=== PATIENT | female | born 1975 | race Caucasian/White ===

== ENCOUNTER 2019-02-05 20:20 | Emergency (ER) | payer MEDICARE ==
[2019-02-05] MEDS ORDERED: Albuterol/Ipratropium 3.0-0.5 MG/3 ML Neb Soln NEB ONE (20:54)
--- NOTE | 2019-02-05 20:56 | EDM.PDOC ---
ED HPI GENERAL MEDICAL PROBLEM - General Chief Complaint: Respiratory Problem Stated Complaint: SOB Time Seen by Provider: 02/05/19 20:50 Source of Information: Reports: Patient, RN Notes Reviewed History Limitations: Reports: No Limitations - History of Present Illness INITIAL COMMENTS - FREE TEXT/NARRATIVE: 43-year-old female presents emergency department today complaint of shortness of breath, she was recently evaluated in clinic a couple days prior newly diagnosed with COPD started on 1 dose of steroids followed by Rajiv harper. She states she is really not improved continues to have shortness of breath worse with exertion she does have a dry cough no fevers no chest pain - Related Data Allergies Allergy/AdvReac Type Severity Reaction Status Date / Time diphenhydramine Allergy Anxiety Verified 02/05/19 20:26 [From Benadryl] latex Allergy Hives Verified 02/05/19 20:28 shrimp Allergy Cannot Verified 02/05/19 20:28 Remember varenicline [From Chantix] Allergy Irritabilit Verified 02/05/19 20:28 y Home Meds: Home Meds ARIPiprazole [Abilify] 02/05/19 [History] Albuterol [Ventolin HFA] 02/05/19 [History] Benzonatate 02/05/19 [History] FLUoxetine HCl [Fluoxetine HCl] 02/05/19 [History] Gabapentin [Neurontin] 02/05/19 [History] Levothyroxine 02/05/19 [History] Lisinopril/Hydrochlorothiazide [Lisinopril-Hctz 10-12.5 mg Tab] 02/05/19 [ History] Methylphenidate HCl [Ritalin] 02/05/19 [History] Oxybutynin 02/05/19 [History] Topiramate [Topamax] 02/05/19 [History] buPROPion [buPROPion XL] 02/05/19 [History] clonazePAM [Clonazepam] 02/05/19 [History] traZODone 02/05/19 [History] Past Medical History Respiratory History: Reports: COPD Musculoskeletal History: Reports: Connective Tissue Disease, Fibromyalgia, Other (See Below) Other Musculoskeletal History: fibromyalgia Psychiatric History: Reports: ADHD, Bipolar, Depression - Past Surgical History GI Surgical History: Reports: Cholecystectomy Musculoskeletal Surgical History: Reports: Arthroscopic Procedure Social & Family History - Tobacco Use Smoking Status *Q: Current Every Day Smoker Years of Tobacco use: 20 Packs/Tins Daily: 0.5 ED ROS GENERAL - Review of Systems Review Of Systems: See Below Constitutional: Denies: Fever, Chills HEENT: Reports: No Symptoms Respiratory: Reports: Shortness of Breath, Wheezing, Cough. Denies: Sputum Cardiovascular: Reports: Dyspnea on Exertion GI/Abdominal: Reports: No Symptoms : Reports: No Symptoms ED EXAM, GENERAL - Physical Exam Exam: See Below Exam Limited By: No Limitations General Appearance: Alert, WD/WN, Mild Distress Ears: Normal External Exam, Normal Canal, Hearing Grossly Normal, Normal TMs Nose: Normal Inspection, Normal Mucosa, No Blood Throat/Mouth: Normal Inspection, Normal Lips, Normal Teeth, Normal Gums, Normal Oropharynx, Normal Voice, No Airway Compromise Head: Atraumatic, Normocephalic Neck: Normal Inspection, Supple, Non-Tender, Full Range of Motion Respiratory/Chest: No Respiratory Distress, Decreased Breath Sounds, Wheezing Cardiovascular: Regular Rate, Rhythm, No Murmur GI/Abdominal: Soft, Non-Tender Course - Vital Signs Last Recorded V/S: Last Vital Signs Temp 96.8 F 02/05/19 20:43 Pulse 111 H 02/05/19 20:43 Resp 30 H 02/05/19 20:43 BP 116/75 02/05/19 20:43 Pulse Ox 93 L 02/05/19 20:43 - Orders/Labs/Meds Orders: Active Orders 24 hr Category Date Time Status EKG Documentation Completion [RC] ASDIRECTED Care 02/05/19 20:54 Active RT Aerosol Therapy [RC] ASDIRECTED Care 02/05/19 20:54 Active EKG 12 Lead [EK] Urgent Ther 02/05/19 20:53 Ordered Labs: Laboratory Tests 02/05/19 02/05/19 02/05/19 Range/Units 20:59 20:59 20:59 WBC 12.6 H (4.5-11.0) K/uL RBC 4.61 (3.30-5.50) M/uL Hgb 13.2 (12.0-15.0) g/dL Hct 41.0 (36.0-48.0) % MCV 89 (80-98) fL MCH 29 (27-31) pg MCHC 32 (32-36) % Plt Count 216 (150-400) K/uL Neut % (Auto) 72 H (36-66) % Lymph % (Auto) 19 L (24-44) % Cameron % (Auto) 6 (2-6) % Eos % (Auto) 2 (2-4) % Baso % (Auto) 0 (0-1) % D-Dimer, Quantitative 474 H (0.0-400.0) ng/mL Sodium 136 L (140-148) mmol/L Potassium 3.3 L (3.6-5.2) mmol/L Chloride 101 (100-108) mmol/L Carbon Dioxide 21 (21-32) mmol/L Anion Gap 17.3 H (5.0-14.0) mmol/L BUN 18 (7-18) mg/dL Creatinine 1.6 H (0.6-1.0) mg/dL Est Cr Clr Drug Dosing 43.32 mL/min Estimated GFR (MDRD) 36 L (>60) Glucose 112 H (74-106) mg/dL Calcium 8.4 L (8.5-10.1) mg/dL Total Bilirubin 0.3 (0.2-1.0) mg/dL AST 17 (15-37) U/L ALT 14 (12-78) U/L Alkaline Phosphatase 113 (46-116) U/L Troponin I < 0.017 (0.000-0.056) ng/mL Total Protein 8.3 H (6.4-8.2) g/dL Albumin 3.1 L (3.4-5.0) g/dL Globulin 5.2 H (2.3-3.5) g/dL Albumin/Globulin Ratio 0.6 L (1.2-2.2) Meds: Medications Discontinued Medications Generic Name Dose Route Start Last Admin Trade Name Freq PRN Reason Stop Dose Admin Albuterol/Ipratropium 3 ml 02/05/19 20:54 02/05/19 21:06 Duoneb 3.0-0.5 Mg/3 Ml NEB 02/05/19 20:55 3 ml ONETIME ONE Administration - Re-Assessments/Exams Free Text/Narrative Re-Assessment/Exam: 02/05/19 21:41 Wells criteria she is low risk for pulmonary embolism Departure - Departure Time of Disposition: 22:38 Disposition: Home, Self-Care 01 Clinical Impression: Bronchitis - Discharge Information Referrals: PCP,None [Primary Care Provider] - Forms: ED Department Discharge Additional Instructions: Take full course of anabiotic's, take full course of prednisone as well, continued use your albuterol inhaler as needed for shortness of breath symptoms , please follow-up with your primary care in the next 5-7 days for reevaluation , call return to the emergency department worsening of symptoms. - My Orders Last 24 Hours: My Active Orders 02/05/19 20:53 EKG 12 Lead [EK] Urgent 02/05/19 20:54 EKG Documentation Completion [RC] ASDIRECTED RT Aerosol Therapy [RC] ASDIRECTED - Assessment/Plan Last 24 Hours: My Active Orders 02/05/19 20:53 EKG 12 Lead [EK] Urgent 02/05/19 20:54 EKG Documentation Completion [RC] ASDIRECTED RT Aerosol Therapy [RC] ASDIRECTED Plan: Assessment Acuity = acute Site and laterality = bronchitis Etiology = probable bacterial cause Manifestations = wheezing and dyspnea Location of injury = Home Lab values = WBC elevated 12.6 consistent leukocytosis d-dimer slightly elevated 474 uncertain significance creatinine elevated 1.6 consistent with chronic renal failure state G IIIB a troponin was negative EKG demonstrates a sinus tachycardia with no signs of ischemia chest x-ray shows no acute process Plan And treat empirically with azithromycin Z-Dominic also prednisone 20 mg once a day for 5 days she does have an albuterol inhaler at home as well as Tessalon pearls which she will continue have her follow-up with her primary care in 5-7 days for reevaluation This note was dictated using [employer] voice recognition software please call with any questions on syntax or grammar.
--- NOTE | 2019-02-05 21:53 | CRLCR ---
INDICATION: SOB COMPARISON: None. FINDINGS: PA and lateral views of the chest demonstrate mild hypoventilatory changes. There are patchy densities at the lung bases, most likely atelectasis. No pneumothorax or effusion. Heart size is normal. No acute osseous findings. IMPRESSION: Hypoventilatory changes with probable mild bibasilar atelectasis. No definite acute airspace disease. Dictated by Jt Colmenares MD @ 02/05/2019 9:52:18 PM Dictated by: Jt Colmenares MD @ 02/05/2019 21:52:23 (Electronically Signed)
== END 2019-02-05 22:49 | disposition home or self-care (01) ==
LOC: JP.ED 20:20
DX: J40 Bronchitis, not specified as acute or chronic (principal); F31.9 Bipolar disorder, unspecified; F17.210 Nicotine dependence, cigarettes, uncomplicated; Z79.899 Other long term (current) drug therapy; Z88.8 Allergy status to other drugs, medicaments and biological substances; Z91.040 Latex allergy status; Z91.013 Allergy to seafood
CPT/HCPCS: 36415; 71046; 80053; 84484; 85025; 85379; 93005; 94640; 99285-25; J7620-GY

== ENCOUNTER 2019-04-10 19:54 | Emergency (ER) | payer MEDICARE ==
[2019-04-10] MEDS ORDERED: Acetaminophen/oxyCODONE 325-5 MG Tab PO ONE (21:27)
--- NOTE | 2019-04-10 21:36 | EDM.PDOC ---
ED HPI GENERAL MEDICAL PROBLEM - General Chief Complaint: Genitourinary Problem Stated Complaint: KIDNEY PAIN Time Seen by Provider: 04/10/19 21:20 Source of Information: Reports: Patient History Limitations: Reports: No Limitations - History of Present Illness INITIAL COMMENTS - FREE TEXT/NARRATIVE: Rosario is a 43 year old female, presents to the ED today with c/o bilateral intermittent flank pain for two days, taking supplements without relief. Patient reports that her neurologist did some blood work last week and she was told that her creatinine was "42". Patient reports her urine was orange earlier today but she has been drinking a lot of water and now her urine is clear. Patient has not had her period for "years" due to depo shot. Patient had kidney stones in the past, her pain does not feel like this. Patient denies any fever or chills. Patient denies any nausea or vomiting. Patient reports that her kidney pain alternates between the right and left, it is now on the right. Onset: Gradual Duration: Day(s): (2) Treatments ECHOCARDIOGRAPHY TECHNOLOGIST: Reports: Other (see below) Other Treatments ECHOCARDIOGRAPHY TECHNOLOGIST: none - Related Data Allergies Allergy/AdvReac Type Severity Reaction Status Date / Time diphenhydramine Allergy Anxiety Verified 04/10/19 21:34 [From Benadryl] latex Allergy Hives Verified 04/10/19 21:34 shrimp Allergy Cannot Verified 04/10/19 21:34 Remember varenicline [From Chantix] Allergy Irritabilit Verified 04/10/19 21:34 y Home Meds: Home Meds ARIPiprazole [Abilify] 02/05/19 [History] Albuterol [Ventolin HFA] 02/05/19 [History] Benzonatate 02/05/19 [History] FLUoxetine HCl [Fluoxetine HCl] 02/05/19 [History] Gabapentin [Neurontin] 02/05/19 [History] Levothyroxine 02/05/19 [History] Lisinopril/Hydrochlorothiazide [Lisinopril-Hctz 10-12.5 mg Tab] 02/05/19 [ History] Methylphenidate HCl [Ritalin] 02/05/19 [History] Oxybutynin 02/05/19 [History] Topiramate [Topamax] 02/05/19 [History] buPROPion [buPROPion XL] 02/05/19 [History] clonazePAM [Clonazepam] 02/05/19 [History] traZODone 02/05/19 [History] Past Medical History Respiratory History: Reports: COPD Musculoskeletal History: Reports: Connective Tissue Disease, Fibromyalgia, Other (See Below) Other Musculoskeletal History: fibromyalgia Psychiatric History: Reports: ADHD, Bipolar, Depression - Past Surgical History GI Surgical History: Reports: Cholecystectomy Musculoskeletal Surgical History: Reports: Arthroscopic Procedure ED ROS GENERAL - Review of Systems Review Of Systems: ROS reveals no pertinent complaints other than HPI. ED EXAM, RENAL/ - Physical Exam Exam: See Below Exam Limited By: No Limitations General Appearance: Alert, WD/WN, No Apparent Distress Throat/Mouth: Normal Inspection, Normal Oropharynx Head: Atraumatic Neck: Normal Inspection, Supple, Non-Tender Respiratory/Chest: No Respiratory Distress, Lungs Clear Cardiovascular: Normal Peripheral Pulses, Regular Rate, Rhythm, No Murmur GI/Abdominal: Normal Bowel Sounds, Soft, Non-Tender (Female) Exam: Deferred Back Exam: No: CVA Tenderness (R), CVA Tenderness (L) Extremities: Normal Inspection Neurological: Alert, Oriented, CN II-XII Intact Psychiatric: Normal Affect, Normal Mood Skin Exam: Warm, Dry, Intact Course - Vital Signs Last Recorded V/S: Last Vital Signs Temp 36.6 C 04/10/19 21:41 Pulse 88 04/10/19 21:41 Resp 14 04/10/19 21:41 BP 138/73 04/10/19 21:41 Pulse Ox 98 04/10/19 21:41 Rosario is a 43 year old female, hx of hypothyroidism, hypertension, bipolar disorder, chronic pain syndrome, chronic myofascial pain, depression, anxiety, CKD and chronic migraine hx who presents to the ED today with significant other. Please refer to HPI and focused exam. Patient is in no acute distress on arrival here, she is hemodynamically stable. Patient's lab work reviewed from clinic, her last creatinine on April 08 was 1.46 with a BUN of 14 and a GFR of 39. UA today returns with 20-30 RBC's and small leukocyte esterase. The blood may be related to her CKD or may be UTI related as patient has been experiencing frequency. Again, given lack of CVA tenderness and intermittent bilateral flank pain I feel it is low likelihood that this is a stone. I am going to culture patient's urine and go ahead and start her on Macrobid for UTI. Patient encouraged to stay well hydrated. She has a PCP appt on the at which time her neurologist already directed her to ask for a nephrology referral which I stressed the importance of this evening. Reasons to return to the ED discussed with patient, she is agreeable to plan of care and discharged in stable condition with her significant other driving. - Orders/Labs/Meds Orders: Active Orders 24 hr Category Date Time Status CULTURE URINE [RM] Stat Lab 04/10/19 21:27 Ordered Labs: Laboratory Tests 04/10/19 Range/Units 20:59 Urine Color Yellow Urine Appearance Cloudy Urine pH 5.0 (4.5-8.0) Ur Specific [place] 1.020 (1.008-1.030) Urine Protein Negative (NEGATIVE) mg/dL Urine Glucose (UA) Normal (NEGATIVE) mg/dL Urine Ketones Negative (NEGATIVE) mg/dL Urine Occult Blood Large (NEGATIVE) Urine Nitrite Negative (NEGATIVE) Urine Bilirubin Negative (NEGATIVE) Urine Urobilinogen Normal (NORMAL) mg/dL Ur Leukocyte Esterase Small (NEGATIVE) Urine RBC 20-30 H (0-5) Urine WBC 0-5 (0-5) Ur Epithelial Cells Many Amorphous Sediment Not seen Urine Bacteria Many Urine Mucus Rare Meds: Medications Discontinued Medications Generic Name Dose Route Start Last Admin Trade Name Freq PRN Reason Stop Dose Admin Oxycodone/Acetaminophen 1 tab 04/10/19 21:27 04/10/19 21:39 Percocet 325-5 Mg PO 04/10/19 21:28 1 tab ONETIME ONE Administration Departure - Departure Time of Disposition: 22:15 Disposition: Home, Self-Care 01 Condition: Good Clinical Impression: UTI, Urinary tract infectious disease - Discharge Information Instructions: Urinary Tract Infection, Adult, [id number] Referrals: Omaira Eubanks MD [Primary Care Provider] - Forms: ED Department Discharge Additional Instructions: Start Macrobid tonight. Make sure you are staying really well hydrated. Follow up with your primary care provider on the as scheduled and make sure to get a referral to nephrology. If your urine culture returns with a bacteria that is not treated with current antibiotic, you will receive a phone call and prescribed something else at that time. - My Orders Last 24 Hours: My Active Orders 04/10/19 21:27 CULTURE URINE [RM] Stat - Assessment/Plan Last 24 Hours: My Active Orders 04/10/19 21:27 CULTURE URINE [RM] Stat
== END 2019-04-10 22:16 | disposition home or self-care (01) ==
LOC: JP.ED 19:54
DX: N39.0 Urinary tract infection, site not specified (principal); J44.9 Chronic obstructive pulmonary disease, unspecified; F31.9 Bipolar disorder, unspecified; Z88.8 Allergy status to other drugs, medicaments and biological substances; Z91.013 Allergy to seafood; Z91.040 Latex allergy status; Z79.899 Other long term (current) drug therapy
CPT/HCPCS: 81001; 87086; 99284; A9270; 87088; 87186; 99282

== ENCOUNTER 2019-04-30 17:20 | Emergency (ER) | payer MEDICARE ==
--- NOTE | 2019-04-30 18:40 | EDM.PDOC ---
ED HPI GENERAL MEDICAL PROBLEM - General Chief Complaint: Back Pain or Injury Stated Complaint: BACK PAIN Time Seen by Provider: 04/30/19 17:24 - History of Present Illness INITIAL COMMENTS - FREE TEXT/NARRATIVE: 43 y/o female presents with low back pain for one week. No injury. Her pain is sharp and moderate. It is worse with movement and better with rest. Her pain radiates into the right leg. No numbness or weakness. No saddle paresthesia, bowel/bladder dysfunction. No fever. Not immunocompromised. 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 The [facility] website reviewed. Lower Back Pain Score (Numeric/FACES): 7 - Related Data Allergies Allergy/AdvReac Type Severity Reaction Status Date / Time diphenhydramine Allergy Anxiety Verified 04/10/19 21:34 [From Benadryl] latex Allergy Hives Verified 04/10/19 21:34 shrimp Allergy Cannot Verified 04/10/19 21:34 Remember varenicline [From Chantix] Allergy Irritabilit Verified 04/10/19 21:34 y Home Meds: Home Meds ARIPiprazole [Abilify] 10 mg PO DAILY 02/05/19 [History] Albuterol [Ventolin HFA] 1 - 2 puff INH Q4H PRN 02/05/19 [History] FLUoxetine HCl [Fluoxetine HCl] 1 tab PO DAILY 02/05/19 [History] Levothyroxine 1 tab PO DAILY 02/05/19 [History] Lisinopril/Hydrochlorothiazide [Lisinopril-Hctz 10-12.5 mg Tab] 10 - 12.5 tab PO DAILY 02/05/19 [History] Methylphenidate HCl [Ritalin] 1 tab PO BID 02/05/19 [History] Oxybutynin 10 mg PO BID 02/05/19 [History] Topiramate [Topamax] 200 mg PO BID 02/05/19 [History] buPROPion [buPROPion XL] 1 tab PO DAILY 02/05/19 [History] clonazePAM [Clonazepam] 1 tab PO DAILY 02/05/19 [History] traZODone 50 mg PO BEDTIME PRN 02/05/19 [History] Pregabalin [Lyrica] 150 mg PO TID 04/30/19 [History] Past Medical History Respiratory History: Reports: COPD Genitourinary History: Reports: UTI, Recurrent 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: Musculoskeletal History: Reports: Connective Tissue Disease, Fibromyalgia, Other (See Below) Other Musculoskeletal History: r hip pain Psychiatric History: Reports: ADHD, Bipolar, Depression Endocrine/Metabolic History: Reports: Obesity/BMI 30+ - Infectious Disease History Infectious Disease History: Reports: Chicken Pox - Past Surgical History GI Surgical History: Reports: Cholecystectomy Musculoskeletal Surgical History: Reports: Arthroscopic Procedure Social & Family History - Family History Family Medical History: Unobtainable - Tobacco Use Smoking Status *Q: Former Smoker Years of Tobacco use: 27 Packs/Tins Daily: 0.5 Used Tobacco, but Quit: Yes Month/Year Tobacco Last Used: January 2019 Second Hand Smoke Exposure: No - Caffeine Use Caffeine Use: Reports: Soda - Alcohol Use Days Per Week of Alcohol Use: 0 - Recreational Drug Use Recreational Drug Use: No ED ROS GENERAL - Review of Systems Review Of Systems: See Below Constitutional: Reports: No Symptoms GI/Abdominal: Denies: Stool Incontinence : Denies: Urinary Retention Musculoskeletal: Reports: Back Pain Neurological: Reports: No Symptoms Psychiatric: Reports: No Symptoms Hematologic/Lymphatic: Reports: No Symptoms ED EXAM,LOWER BACK PAIN/INJURY - Physical Exam Exam: See Below Exam Limited By: No Limitations General Appearance: Alert, WD/WN, No Apparent Distress Back Exam: Normal Inspection Extremities: Other (Normal straight leg raising) Neurological: Alert, Normal Mood/Affect, No Motor/Sensory Deficits, Oriented x 3 Skin Exam: Warm, Dry Course - Vital Signs Last Recorded V/S: Last Vital Signs Temp 37.1 C 04/30/19 17:56 Pulse 119 H 04/30/19 17:56 Resp 16 04/30/19 17:56 BP 127/86 04/30/19 17:56 Pulse Ox 96 04/30/19 17:56 Departure - Departure Time of Disposition: 18:40 Disposition: Home, Self-Care 01 Condition: Good Clinical Impression: Lumbar strain - Discharge Information *PRESCRIPTION DRUG MONITORING PROGRAM REVIEWED*: Not Applicable *COPY OF PRESCRIPTION DRUG MONITORING REPORT IN PATIENT ADAMARIS: Not Applicable Instructions: Low Back Sprain Referrals: Omaira Eubanks MD [Primary Care Provider] - Forms: ED Department Discharge Additional Instructions: Take Flexeril as prescribed. Take ibuprofen 600 mg three times a day as needed for pain. Follow up with your primary care provider next week if you're still having problems. Return to the ER as needed.
== END 2019-04-30 18:53 | disposition home or self-care (01) ==
LOC: JP.ED 17:20
DX: S39.012A Strain of muscle, fascia and tendon of lower back, initial encounter (principal); J44.9 Chronic obstructive pulmonary disease, unspecified; F31.9 Bipolar disorder, unspecified; Z91.040 Latex allergy status; Z91.013 Allergy to seafood; Z88.8 Allergy status to other drugs, medicaments and biological substances; Z79.899 Other long term (current) drug therapy; Z87.891 Personal history of nicotine dependence; X58.XXXA Exposure to other specified factors, initial encounter
CPT/HCPCS: 99283

== ENCOUNTER 2019-08-11 07:02 | Emergency (ER) | payer MEDICARE ==
[2019-08-11] MEDS ORDERED: Ketorolac 60 MG/2 ML SDV IM ONE (07:34)
[2019-08-11] MEDS ORDERED: Baclofen 10 MG Tab PO ONE (07:34)
--- NOTE | 2019-08-11 07:41 | EDM.PDOC ---
ED HPI GENERAL MEDICAL PROBLEM - General Chief Complaint: Back Pain or Injury Stated Complaint: BACK PAIN Time Seen by Provider: 08/11/19 07:35 Source of Information: Reports: Patient History Limitations: Reports: No Limitations - History of Present Illness INITIAL COMMENTS - FREE TEXT/NARRATIVE: pt has been,having severe lower back pain in the past few monthes which has gotten worse. She got up this am and was very uncomfortable She has some pain going over the hip on the rt. She has not had any recent injury. She did have a MRI 10 days ago and she has not had the results. Onset: Other (pain is much worse today. ) Duration: Hour(s): Location: Reports: Back Associated Symptoms: Reports: No Other Symptoms - Related Data Allergies Allergy/AdvReac Type Severity Reaction Status Date / Time diphenhydramine Allergy Anxiety Verified 08/11/19 07:18 [From Benadryl] latex Allergy Hives Verified 08/11/19 07:18 shrimp Allergy Cannot Verified 08/11/19 07:18 Remember varenicline [From Chantix] Allergy Irritabilit Verified 08/11/19 07:18 y Home Meds: Home Meds ARIPiprazole [Abilify] 10 mg PO DAILY 02/05/19 [History] Albuterol [Ventolin HFA] 1 - 2 puff INH Q4H PRN 02/05/19 [History] Levothyroxine 1 tab PO DAILY 02/05/19 [History] Methylphenidate HCl [Ritalin] 1 tab PO BID 02/05/19 [History] Oxybutynin 10 mg PO BID 02/05/19 [History] Topiramate [Topamax] 200 mg PO BID 02/05/19 [History] buPROPion [buPROPion XL] 1 tab PO DAILY 02/05/19 [History] clonazePAM [Clonazepam] 1 tab PO DAILY 02/05/19 [History] traZODone 50 mg PO BEDTIME PRN 02/05/19 [History] Pregabalin [Lyrica] 150 mg PO TID 04/30/19 [History] Ondansetron [Ondansetron ODT] 1 tab PO Q6HR PRN 08/11/19 [History] Propranolol [Inderal] 1 tab PO DAILY 08/11/19 [History] Rizatriptan Benzoate [Rizatriptan] 1 tab SL DAILY PRN 08/11/19 [History] Past Medical History Respiratory History: Reports: COPD Genitourinary History: Reports: UTI, Recurrent 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: Musculoskeletal History: Reports: Connective Tissue Disease, Fibromyalgia, Other (See Below) Other Musculoskeletal History: r hip pain Psychiatric History: Reports: ADHD, Bipolar, Depression Endocrine/Metabolic History: Reports: Obesity/BMI 30+ - Infectious Disease History Infectious Disease History: Reports: Chicken Pox - Past Surgical History GI Surgical History: Reports: Cholecystectomy Musculoskeletal Surgical History: Reports: Arthroscopic Procedure Social & Family History - Family History Family Medical History: Unobtainable - Tobacco Use Smoking Status *Q: Never Smoker - Caffeine Use Caffeine Use: Reports: Soda ED ROS GENERAL - Review of Systems Review Of Systems: See Below Constitutional: Reports: No Symptoms HEENT: Reports: No Symptoms Respiratory: Reports: No Symptoms Cardiovascular: Reports: No Symptoms Endocrine: Reports: No Symptoms GI/Abdominal: Reports: No Symptoms : Reports: No Symptoms Musculoskeletal: Reports: Other (pain in the lower rt back . This is going down over the buttock. ) Skin: Reports: No Symptoms Neurological: Reports: No Symptoms ED EXAM,LOWER BACK PAIN/INJURY - Physical Exam Exam: See Below Text/Narrative:: pt arrived with pain in her rt lower back. She woke up this am and the pain was very severe. She did have a MRI 10 days ago, Exam Limited By: No Limitations General Appearance: Alert, Anxious, Moderate Distress Ears: Normal External Exam Nose: Normal Inspection Head: Atraumatic Neck: Normal Inspection Respiratory/Chest: No Respiratory Distress Back Exam: Muscle Spasm (pt is tender over the rt lower back. She has pain going down over the rt buttock. ), Other (pt is having acute back pain in the lower rt ) Extremities: Normal Inspection Neurological: Alert, Oriented x 3 Psychiatric: Anxious, Other (pt is uncomfortable, ) Course - Vital Signs Last Recorded V/S: Last Vital Signs Temp 37.6 C 08/11/19 07:22 Pulse 109 H 08/11/19 07:22 Resp 16 08/11/19 07:22 BP 139/85 08/11/19 07:22 Pulse Ox 93 L 08/11/19 07:22 - Orders/Labs/Meds Meds: Medications Discontinued Medications Generic Name Dose Route Start Last Admin Trade Name Sim PRN Reason Stop Dose Admin Baclofen 10 mg 08/11/19 07:34 08/11/19 07:38 Lioresal PO 08/11/19 07:35 10 mg ONETIME ONE Administration Ketorolac Tromethamine 60 mg 08/11/19 07:34 08/11/19 07:38 Toradol IM 08/11/19 07:35 60 mg ONETIME ONE Administration - Re-Assessments/Exams Free Text/Narrative Re-Assessment/Exam: 08/11/19 07:54 pt had a MRI 10 days ago. She was found to have large central disc evtrusion which was putting pressure on the L% nerve root. She will be refered back to Dr Eubanks so she can be seen Thursday or thursday, Pt was given torodol 60mg im and baclofen 10 mg. 08/11/19 07:57 will have the pt switch to baclofen for muscle relaxation so it does not make her so drowsy. She will be given norco 5/325 to use q8h over the week end. ice or heat should be used. She will see Dr Eubanks the first of the week. Pt may benefit from epidural injections. Departure - Departure Time of Disposition: 08:35 Disposition: Home, Self-Care 01 Condition: Fair Clinical Impression: Lumbar disc disease with radiculopathy - Discharge Information Instructions: Herniated Disk, [id number] Referrals: Omaira Eubanks MD [Primary Care Provider] - Forms: ED Department Discharge Care Plan Goals: See Dr Eubanks Thursday or Thursday, consider epidural injections, baclofen 10 mg bid for muscle relaxation, norco 5/325 q8h prn for pain,# 10, Use ice or heat over the rt lower lumbar area.
== END 2019-08-11 08:33 | disposition home or self-care (01) ==
LOC: JP.ED 07:02
DX: M54.16 Radiculopathy, lumbar region (principal); J44.9 Chronic obstructive pulmonary disease, unspecified; E66.9 Obesity, unspecified; F32.9 Major depressive disorder, single episode, unspecified; Z88.8 Allergy status to other drugs, medicaments and biological substances; Z91.013 Allergy to seafood; Z79.899 Other long term (current) drug therapy; Z68.41 Body mass index [BMI] 40.0-44.9, adult
CPT/HCPCS: 96372; 99283; A9270; J1885

== ENCOUNTER 2020-01-30 06:54 | Inpatient (IN) | payer MEDICARE ==
[~2020-01-30 06:54] MED LIST: cefOXitin 2 GM Vial ONE
[2020-01-30] MEDS ORDERED: Acetaminophen 500 MG Tab PO ONE (07:00)
[2020-01-30] MEDS ORDERED: Scopolamine 1.5 MG Transdermal Patch TOP SCH (07:00)
[2020-01-30] MEDS ORDERED: Celecoxib 200 MG Cap PO ONE (07:10)
[2020-01-30] MEDS ORDERED: Dextrose 5%-Lactated Ringers 1,000 ML IV SCH (07:30)
[2020-01-30 07:51] LABS: HEMOGLOBIN A1C 6.5 % (4.5-6.2)
[2020-01-30] MEDS ORDERED: Glycopyrrolate 0.2 MG/ML 5 ML MDV ONE (07:56)
[2020-01-30] MEDS ORDERED: Rocuronium 50 MG/5 ML Vial ONE (07:56)
[2020-01-30] MEDS ORDERED: Dexamethasone 4 MG/ML SDV ONE (07:56)
[2020-01-30] MEDS ORDERED: Neostigmine Methylsulfate 1 MG/ML 5 ML Syringe ONE (07:56)
[2020-01-30] MEDS ORDERED: Succinylcholine 200 MG/10 ML MDV ONE (07:56)
[2020-01-30] MEDS ORDERED: fentaNYL 250 MCG/5 ML SDV ONE ×2 (07:56→09:02)
[2020-01-30] MEDS ORDERED: Ondansetron 4 MG/2 ML SDV ONE (07:56)
[2020-01-30] MEDS ORDERED: Propofol 200 MG/20 ML SDV ONE (07:56)
[2020-01-30] MEDS ORDERED: Albuterol/Ipratropium 3.0-0.5 MG/3 ML Neb Soln NEB ONE ×2 (08:15→11:45)
[2020-01-30] MEDS ORDERED: Ketamine 50 MG in Sodium Chloride 0.9% 49.5 ML IV SCH (08:45)
[2020-01-30] MEDS ORDERED: Ketamine 500 MG/5 ML MDV IV SCH (08:45)
[2020-01-30] MEDS ORDERED: Magnesium Sulfate 5.7 GM in Sodium Chloride 0.9% 250 ML IV ONE (08:45)
[2020-01-30] MEDS ORDERED: Magnesium Sulfate 3.6 GM in Sodium Chloride 0.9% 100 ML IV SCH (08:45)
[2020-01-30] MEDS: cefOXitin 2 GM in Sodium Chloride 0.9% 50 ML IV ONE ×2 (09:19→17:19)
[2020-01-30] MEDS ORDERED: hydrOXYzine HCL 100 MG/2 ML SDV IM ONE (12:04)
[2020-01-30] MEDS ORDERED: Albuterol/Ipratropium 3.0-0.5 MG/3 ML Neb Soln INH PRN (13:05)
[2020-01-30] MEDS ORDERED: Glucagon,Human Recombinant 1 MG Vial IM PRN (13:05)
[2020-01-30] MEDS ORDERED: Labetalol 20 MG/4 ML Syringe IVPUSH PRN (13:05)
[2020-01-30] MEDS ORDERED: Ondansetron 4 MG/2 ML SDV IVPUSH PRN (13:05)
[2020-01-30] MEDS ORDERED: HYDROmorphone 1 MG/ML Syringe IV PRN (13:05)
[2020-01-30] MEDS ORDERED: HYDROmorphone 0.5 MG/0.5 ML Syringe IVPUSH PRN (13:05)
[2020-01-30] MEDS ORDERED: 50% Dextrose in Water 50 ML Syringe IVPUSH PRN (13:05)
[2020-01-30] MEDS ORDERED: Calcium Gluconate 10% 1 GM/10 ML SDV IVPUSH PRN (13:05)
[2020-01-30] MEDS ORDERED: Insulin Lispro 100 Unit/ML 3 ML KwikPen SUBCUT PRN (13:05)
[2020-01-30] MEDS ORDERED: Acetaminophen 500 MG Tab PO PRN (13:05)
[2020-01-30] MEDS ORDERED: Metoclopramide 10 MG/2 ML SDV IVPUSH PRN (13:05)
[2020-01-30] MEDS ORDERED: hydrOXYzine HCL 100 MG/2 ML SDV IM PRN (13:05)
[2020-01-30] MEDS ORDERED: traZODone 50 MG Tab PO PRN (13:11)
[2020-01-30] MEDS ORDERED: ClonazePAM 0.5 MG Tab PO PRN (13:11)
[2020-01-30] MEDS ORDERED: Rizatriptan 10 MG Tab.DIS PO PRN (13:13)
[2020-01-30] MEDS ORDERED: Melatonin 3 MG Tab PO PRN (13:14)
[2020-01-30] MEDS ORDERED: FIORINAL PO PRN (13:29)
[2020-01-30] MEDS: Dextrose 5%-Lactated Ringers 1,000 ML IV SCH (13:57)
[2020-01-30] MEDS: Lactated Ringers 1,000 ML IV SCH (13:58)
[2020-01-30] MEDS: Pregabalin 75 MG Cap PO SCH ×2 (14:52→21:00)
[2020-01-30] MEDS: Albuterol/Ipratropium 3.0-0.5 MG/3 ML Neb Soln INH SCH ×2 (14:56→21:06)
[2020-01-30] MEDS: Cyclobenzaprine 10 MG Tab PO PRN (15:10)
[2020-01-30] MEDS: Sodium Ferric Gluconate Cmplex 250 MG in Sodium Chloride 0.9% 100 ML IV SCH (15:37)
[2020-01-30] MEDS: cefOXitin 2 GM in Sodium Chloride 0.9% 50 ML IV SCH ×2 (17:07→21:01)
[2020-01-30] MEDS: Pantoprazole 40 MG Vial IVPUSH SCH (17:18)
[2020-01-30] MEDS: Acetaminophen 500 MG Tab PO SCH (17:19)
[2020-01-30] MEDS: MVI, Adult with Vitamin K 10 ML, Thiamine 200 MG, Chromium/Copper/Mang/Selen/Zn 1 ML in... IV SCH ×4 (17:28)
[2020-01-30] MEDS ORDERED: Heparin Sodium 5,000 Units/ML Vial SUBCUT SCH (18:00)
[2020-01-30] MEDS ORDERED: Tranexamic Acid 1,000 MG in Sodium Chloride 0.9% 50 ML IV ONE ×2 (18:04→21:30)
[2020-01-30] MEDS: Topiramate 100 MG Tab PO SCH (20:56)
[2020-01-30] MEDS: DULoxetine 30 MG Cap PO SCH (20:56)
[2020-01-30] MEDS: Propranolol 40 MG Tab PO SCH (20:57)
[2020-01-30] MEDS: Baclofen 10 MG Tab PO SCH (20:57)
[2020-01-30] MEDS: Oxybutynin 5 MG Tab PO SCH (20:58)
[2020-01-31] MEDS: Acetaminophen 500 MG Tab PO SCH ×3 (01:44→17:00)
[2020-01-31] MEDS: Dextrose 5%-Lactated Ringers 1,000 ML IV SCH (02:00)
[2020-01-31] MEDS: Lactated Ringers 1,000 ML IV SCH ×2 (02:01→10:14)
[2020-01-31] MEDS ORDERED: Iopamidol 612 MG/ML 50 ML SDV PO STA (02:16)
[2020-01-31] MEDS: cefOXitin 2 GM in Sodium Chloride 0.9% 50 ML IV SCH ×4 (03:20→21:18)
[2020-01-31] MEDS: oxyCODONE 5 MG Tab PO PRN ×3 (05:48→21:13)
[2020-01-31] MEDS: Albuterol/Ipratropium 3.0-0.5 MG/3 ML Neb Soln INH SCH ×4 (07:01→21:11)
[2020-01-31] MEDS: Levothyroxine 100 MCG, Levothyroxine 50 MCG, Levothyroxine 25 MCG PO SCH ×3 (07:16)
[2020-01-31] MEDS ORDERED: Ondansetron 4 MG Tab.DIS PO PRN (07:27)
--- NOTE | 2020-01-31 07:27 | CRLCR ---
Exam: Modified upper GI Indication: Status post duodenal switch. Leak check Technique: Patient was given 50 milliliters of contrast to drink. AP abdominal radiographs were acquired immediately, 20 minutes postcontrast, and 40 minutes postcontrast to evaluate for leak. No radiologist was present for image acquisition. Comparison: None available Findings: No cooler worker image was obtained. On the initial image, there is contrast in the distal esophagus and in a small gastric remnant. Surgical clips in right upper quadrant may be from prior cholecystectomy. There is a surgical drain adjacent to the gastric remnant. Contrast passes through the gastric remnant and into the alimentary loop of the duodenal switch. On the 20 and 40 minutes images, contrast continues to progress. There is no extraluminal contrast identified to suggest a leak. Impression: 1. Status post duodenal switch procedure. No evidence of leak identified. Dictated by Abdifatah Tena MD @ Jan 31 2020 7:16AM Signed by Dr. Abdifatah Tena @ Jan 31 2020 7:25AM
[2020-01-31] MEDS ORDERED: hydrOXYzine HCl 25 MG Tab PO PRN (07:29)
[2020-01-31] MEDS: buPROPion 100 MG Tab.SR PO SCH (08:52)
[2020-01-31] MEDS: Oxybutynin 5 MG Tab PO SCH ×2 (08:52→21:11)
[2020-01-31] MEDS: ARIPiprazole 10 MG Tab PO SCH (08:52)
[2020-01-31] MEDS: Topiramate 100 MG Tab PO SCH ×2 (08:52→21:11)
[2020-01-31] MEDS: Celecoxib 200 MG Cap PO SCH ×2 (08:52→21:12)
[2020-01-31] MEDS: DULoxetine 30 MG Cap PO SCH ×2 (08:52→21:12)
[2020-01-31] MEDS: Baclofen 10 MG Tab PO SCH ×2 (08:52→21:12)
[2020-01-31] MEDS: Methylphenidate 10 MG Tab PO SCH ×2 (08:53→11:56)
[2020-01-31] MEDS: Pregabalin 75 MG Cap PO SCH ×3 (08:53→21:18)
[2020-01-31] MEDS: Propranolol 40 MG Tab PO SCH ×2 (08:55→21:13)
[2020-01-31] MEDS: SCOPOLAMINE PATCH CHECK TOP SCH (08:56)
--- NOTE | 2020-01-31 10:17 | PN ---
DATE OF SERVICE: 01/31/2020 SUBJECTIVE: Rosario is postoperative day #1 following a duodenal switch. She had a lot of bleeding from her incision. She was given 2 doses of tranexamic acid. The bleeding has stopped. Vital signs did remain stable, temp max of 99.2. Oral intake 870, urine output 750, ROLAND drain put out 205 mL of a light red drainage that is clearing to a light pink drainage. Hemoglobin was 11.8. Ferritin was 17. Upper GI this morning was normal. Remainder of review of systems negative for any pertinent positives and negatives. OBJECTIVE: GENERAL: Rosario is a pleasant 44-year-old female, alert and orientated. VITAL SIGNS: TPR at 0709 is 98, 115, 18. Blood pressure 151/79. HEENT: Negative. NECK: Supple. HEART: Regular rate and rhythm. LUNGS: Clear. ABDOMEN: Dressings are dry and intact. Abdominal binder is on. ROLAND drain is draining a light red drainage. EXTREMITIES: Without peripheral edema. ASSESSMENT: Laparoscopic duodenal switch, liver biopsy, repair of diaphragmatic hernia for morbid obesity, hepatomegaly, diaphragmatic hernia, and excision of mediastinal lipoma. Date of surgery: 01/30/2020. Surgeon: Michael Schuler MD. PLAN: 1. Decrease IV of lactated Ringer's to 100 mL/hour. 2. Discontinue D5LR IV. 3. Dressing off, may shower. 4. Step 2 gastric bypass diet without cereal. 5. Communication order: 3 med cups per hour, 1 every 20 minutes to assure adequate oral intake. 6. Check CBC, CMP in a.m. 7. Atarax 25 mg p.o. q.4 hours p.r.n. pain. 8. Zofran 4 mg every 4 hours ODT p.r.n. nausea, vomiting. 9. Discontinue IV Dilaudid. 10.Ambulate 6 times. 11.Use incentive spirometer 10 times every hour while awake. 12.We will evaluate p.r.n. or in a.m. Vane Carvalho PA-C /[id number]
[2020-01-31] MEDS: Sodium Ferric Gluconate Cmplex 250 MG in Sodium Chloride 0.9% 100 ML IV SCH (14:21)
[2020-01-31] MEDS: MVI, Adult with Vitamin K 10 ML, Thiamine 200 MG, Chromium/Copper/Mang/Selen/Zn 1 ML in... IV SCH ×4 (16:00)
[2020-01-31] MEDS: Pantoprazole 40 MG Vial IVPUSH SCH (16:00)
[2020-01-31] MEDS: Cyclobenzaprine 10 MG Tab PO PRN (17:06)
[2020-02-01] MEDS: Acetaminophen 500 MG Tab PO SCH ×2 (01:07→07:26)
[2020-02-01] MEDS: Lactated Ringers 1,000 ML IV SCH (01:13)
[2020-02-01] MEDS: Albuterol/Ipratropium 3.0-0.5 MG/3 ML Neb Soln INH SCH (07:02)
[2020-02-01] MEDS: Levothyroxine 100 MCG, Levothyroxine 50 MCG, Levothyroxine 25 MCG PO SCH ×3 (07:25)
[2020-02-01] MEDS: Methylphenidate 10 MG Tab PO SCH (07:30)
[2020-02-01] MEDS: oxyCODONE 5 MG Tab PO PRN (07:30)
[2020-02-01] MEDS: Propranolol 40 MG Tab PO SCH (08:17)
[2020-02-01] MEDS: Pregabalin 75 MG Cap PO SCH (08:18)
[2020-02-01] MEDS: Topiramate 100 MG Tab PO SCH (08:18)
[2020-02-01] MEDS: buPROPion 100 MG Tab.SR PO SCH (08:19)
[2020-02-01] MEDS: Celecoxib 200 MG Cap PO SCH (08:19)
[2020-02-01] MEDS: DULoxetine 30 MG Cap PO SCH (08:19)
[2020-02-01] MEDS: Baclofen 10 MG Tab PO SCH (08:19)
[2020-02-01] MEDS: Oxybutynin 5 MG Tab PO SCH (08:19)
[2020-02-01] MEDS: SCOPOLAMINE PATCH CHECK TOP SCH (08:20)
[2020-02-01] MEDS: ARIPiprazole 10 MG Tab PO SCH (08:20)
[2020-02-01] MEDS ORDERED: Cyanocobalamin (Vitamin B12) 1,000 MCG/ML SDV IM ONE (09:00)
--- NOTE | 2020-02-01 12:12 | DISCH ---
ADMISSION DIAGNOSES: 1. Morbid obesity, BMI 41.8. 2. Hypothyroidism. 3. Hypertension disorder. 4. Bipolar I disorder. 5. Hypermobility syndrome. 6. Chronic pain syndrome. 7. Ex-tobacco user, resolved. 8. Chronic myofascial pain. 9. Major depression disorder. 10.Anxiety. 11.Chronic kidney disease, stage 3. 12.Migraine headache without aura. 13.Right hip pain. 14.Neck pain. 15.Hypoglycemia. 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 18.Lumbar herniated disk. 19.Chronic diarrhea. 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 DISCHARGE DIAGNOSES: Laparoscopic duodenal switch, liver biopsy, repair of diaphragmatic hernia, for morbid obesity, hepatomegaly, diaphragmatic hernia, and excision of mediastinal lipoma. Date of surgery 01/30/2020. Surgeon: Michael Schuler MD. HISTORY: Rosario is a pleasant 44-year-old female with longstanding history of morbid obesity and increasing comorbidities. After preoperative evaluation, discussion of possible risks and possible complications, she wished to proceed with surgical procedure. HOSPITAL COURSE: Rosario had her surgery on 01/30/2020. On the evening of surgery, she had bleeding from her incision sites and around the ROLAND drain. She was given 2 doses of tranexamic acid and the bleeding stopped. On postoperative day #1, her upper GI was normal. She was started on step 2 gastric bypass diet. IV was decreased to 100 mL per hour of lactated Ringer's. Dressing was removed. She was able to shower. Her activity was good. On postoperative day #2, vital signs remained stable. Activity good. Pain was well managed. Received dietary instruction and discharge instructions. Able to be discharged to home. Of note, hemoglobin 9.6 on day of discharge. PHYSICAL EXAMINATION: GENERAL: Rosario is a pleasant, 44-year-old female. Alert and orientated. SKIN: Warm and dry. Color is good. VITAL SIGNS: Height is 5 feet 6 inches. Weight is 259 pounds, BMI 41.8. TPR at 0653, 98, 99, 18, blood pressure 137/77. HEENT: Negative. NECK: Supple. HEART: Regular rate and rhythm. LUNGS: Clear. ABDOMEN: Trocar incisions look good. Sutures intact. 4 x 4 over ROLAND drain site. Abdominal binder is on. EXTREMITIES: Without peripheral edema. DISPOSITION: Discharged to home. CONDITION: Stable and improving. FOLLOWUP: Appointment with Vane Carvalho PA-C, at [facility] on 02/09/2020, at 9:15 a.m. HOME MEDICATIONS: 1. Zofran ODT 4 mg every 4 hours p.r.n. nausea #30. 2. Celebrex 200 mg b.i.d. for 2 weeks. 3. Tylenol Extra Strength 1000 mg every 8 hours. She is to resume home medications: 1. Abilify 10 mg oral daily. 2. Albuterol inhaler 1 to 2 puffs every 4 hours p.r.n. wheezing. 3. Baclofen 10 mg oral twice daily. 4. Fiorinal 50/325/40 one capsule every 8 hours p.r.n. pain. 5. Cymbalta 30 mg twice daily. 6. Famotidine 20 mg oral twice daily. 7. Levothyroxine 175 mcg oral before breakfast. 8. Melatonin 10 mg oral daily. 9. Ritalin 10 mg oral twice daily. 10.Oxybutynin 10 mg oral twice daily. 11.Protonix 40 mg daily. 12.Lyrica 150 mg oral 3 times a day. 13.Inderal 1 tablet oral twice daily. 14.Rizatriptan one tablets sublingual daily p.r.n. headache. 15.Topamax 200 mg twice daily. 16.Bactrim DS 1 capsule twice daily. 17.Bupropion 100 mg oral daily. 18.Clonazepam 0.5 mg to 1 mg tablet oral daily. 19.Trazodone 100 mg oral at bedtime. 20.Continue with Depo-Provera for control. DIET: Step 2 gastric bypass diet with no cereal for 30 days until 03/02/2020. ACTIVITY: No lifting greater than 10 pounds for 2 weeks. Driving: Do not drive for 1 week. Shower/bathing: May shower. DISCHARGE INSTRUCTIONS: Notify provider if any fever, increased pain, nausea, or vomiting. Keep site clean and dry. Wear abdominal binder for 2 weeks and then as tolerated. Use incentive spirometer 10 times every hour while awake.
--- NOTE | 2020-02-08 15:25 | OR ---
DATE OF PROCEDURE: 01/30/2020 SURGEON: Michael Schuler MD PREOPERATIVE DIAGNOSIS: Morbid obesity. POSTOPERATIVE DIAGNOSES: 1. Morbid obesity. 2. Marked hepatomegaly. 3. Paraesophageal diaphragmatic hernia. 4. Mediastinal lipoma. OPERATIVE PROCEDURES: Diagnostic laparoscopy with a: 1. Laparoscopic duodenal switch (44059). 2. Harman-Cut needle liver biopsy (56572). 3. Repair of paraesophageal diaphragmatic hernia (52357). 4. Excision of mediastinal lipoma (98282). ANESTHESIA: General. SHEET METAL ASSEMBLER: Vane Carvalho PA-C INDICATION FOR PROCEDURE: A 44-year-old female, presenting with longstanding morbid obesity and increasingly significant comorbidities. After preoperative evaluation and discussion, she wished to proceed with a duodenal switch. Potential risks of the procedure including bleeding, infection, leaks from various GI tract closures, problems with bowel obstruction over time as well as possibility of cardiopulmonary, septic, or hemorrhagic complications leading to were all discussed, and the patient wishes to proceed. DETAILS OF PROCEDURE: The patient was taken to the operating room, and after general endotracheal anesthesia was induced, she was placed in a lithotomy position. A Arriaza catheter was inserted, and the abdomen prepped and draped. 20 cm inferior and 5 cm left of the xiphoid process, a transverse incision was made and the peritoneal cavity entered under direct vision with an Optiview trocar, inflated 15 mmHg pressure with CO2. Laparoscope was then reinserted and no underlying trocar insertion site injuries were seen. Bilateral transversus abdominis plane blocks were then placed and 6 additional trocars were placed across the upper and mid abdomen. The liver was noted to be markedly enlarged and fatty infiltrated. Harman-Cut needle biopsy was obtained from left lobe of the liver. Minimal bleeding from the biopsy site was controlled with electrocautery. Upon elevation of the liver, the patient was noted to have a moderate-sized paraesophageal diaphragmatic hernia with prolapse of perigastric fat and gastric fundus in the plane anterior to the course of the esophagus. This was reduced. The peritoneum overlying was incised and reflected downward. During the course of the dissection, mediastinal lipoma was encountered, following this repair was accomplished with 0 Ethibond sutures reinforced with PTFE pledgets. At this point, the omentum was divided away from the greater curvature of the stomach with Harmonic Scalpel. This dissection was then continued proximally to include the short gastric vessels including the highest and posterior short gastric vessels. The left aggie of the diaphragm was then more or less skeletonized to avoid a large cul-de-sac of the gastric fundus in the subsequent sleeve gastrectomy formation. The omentum was then dissected distally to a 0.4 cm distal to the pylorus. At that point, the site for the initial staple lines beginning in the antrum and continuing underneath the incisura angularis was marked out with electrocautery. The 1st 3 firings of the sleeve gastrectomy staple line were with NIYAH black loads. A 40-Slovak chest tube was then placed orally and along the lesser curvature of the stomach and from there into the antrum and the remainder of the sleeve gastrectomy was accomplished using the chest tube and tied with a combination of reinforced black and purple NIYAH loads. At that point, the sleeve gastrectomy appeared to be satisfactorily completed and the specimen was taken off the side and was subsequently removed. The small bowel was then traced out 300 cm proximal to the ileocecal valve. This easily came up to the duodenum. The duodenum was then divided 4 cm distal to the pylorus with a reinforced NIYAH purple load. The stay sutures between the antimesenteric border of the small bowel 300 cm proximal to the ileocecal valve was then placed. Small enterotomies were then made at the small bowel and duodenum, and 30 mm NIYAH mcguire load was then placed and the initial staple lines of the duodenal ileostomy was then created. Stay sutures of the common opening were then placed with 3-0 Vicryl stitch and this was elevated and common opening was then closed with a NIYAH purple load. This closure was reinforced with 3-0 Vicryl seromuscular stitch. At this point, the duodenal ileostomy was reinforced with some fibrin sealant as well as proximal end of the sleeve gastrectomy line around the area of the esophagogastric junction. Omentum was then pulled up overlying both of these areas as well. A suture between the small just proximal to the anastomosis was then placed up against the antrum with 3-0 Vicryl stitch as well. The mesentery of the safe conversion of the loop to a Thu-en-Y configuration and this could be accomplished at a later time should that become necessary. Leak test was then accomplished with injection of air into the sleeve gastrectomy. Good flow through the anastomosis was confirmed. There was no evidence of any air bubbles or signs of leak. At this point, the specimen was retrieved through the left lateral trocar site. A single Rene-Lobo drain was then placed up against the area of the esophagogastric junction and from there into the splenic fossa with no further problems noted. Trocars were removed and peritoneal cavity deflated. Incisions were closed with some 4-0 Vicryl skin stitch, which was also used to fix the drain. The patient was taken to the recovery room in satisfactory condition. Physician assistant housekeeping manager, Vane Carvalho, played an essential role in assisting in this case, helping to position the patient, retract structures as needed, as well as suturing and cutting sutures when indicated. Her presence improved patient safety and decreased operative time. Michael Schuler MD /[id number]
== END 2020-02-01 10:05 | disposition home or self-care (01) | DRG 621 ==
LOC: JP.SDS 06:54 → JP.MS 06:57 → EDSTATUS 07:15 → JP.MS 11:20
PROVIDERS: ADMIT Surgery; ATTEND Surgery
PROC: 0D194ZB Bypass Duodenum to Ileum, Percutaneous Endoscopic Approach (ICD-10-PCS; principal; 2020-01-30)
PROC: 0FB24ZX Excision of Left Lobe Liver, Percutaneous Endoscopic Approach, Diagnostic (ICD-10-PCS; 2020-01-30)
PROC: 0BQT4ZZ Repair Diaphragm, Percutaneous Endoscopic Approach (ICD-10-PCS; 2020-01-30)
PROC: 0JB63ZZ Excision of Chest Subcutaneous Tissue and Fascia, Percutaneous Approach (ICD-10-PCS; 2020-01-30)
DX: E66.01 Morbid (severe) obesity due to excess calories (principal); Z68.41 Body mass index [BMI] 40.0-44.9, adult; E03.9 Hypothyroidism, unspecified; F31.9 Bipolar disorder, unspecified; M35.7 Hypermobility syndrome; G89.4 Chronic pain syndrome; M79.18 Myalgia, other site; F41.9 Anxiety disorder, unspecified; I12.9 Hypertensive chronic kidney disease with stage 1 through stage 4 chronic kidney disease, or unspecified chronic kidney disease; N18.3 Chronic kidney disease, stage 3 (moderate); M25.551 Pain in right hip; M54.2 Cervicalgia; E04.9 Nontoxic goiter, unspecified; G43.009 Migraine without aura, not intractable, without status migrainosus; F63.2 Kleptomania; M51.26 Other intervertebral disc displacement, lumbar region; R16.0 Hepatomegaly, not elsewhere classified; D17.1 Benign lipomatous neoplasm of skin and subcutaneous tissue of trunk; Z79.890 Hormone replacement therapy; Z79.899 Other long term (current) drug therapy; Z91.040 Latex allergy status; Z91.09 Other allergy status, other than to drugs and biological substances
CPT/HCPCS: 36415; 74240; 80053; 81001; 81025; 82728; 82962; 83036; 84443; 85027; 86850; 86900; 86901; 88304; 88307; 88313; 94640; 94762; A9270-GY; C9113; J0171; J0330; J0694; J1100; J1170; J2405; J2704; J2710; J2795; J2916; J3010; J3410; J3411; J3420; J3475; J3490; J7050; J7120; J7121; J7620-GY; Q9967

== ENCOUNTER 2020-10-19 08:38 | Day surgery (SDC) | payer MEDICARE ==
[2020-10-19] MEDS ORDERED: Lactated Ringers 1,000 ML IV ONE (09:00)
[2020-10-19] MEDS ORDERED: Ondansetron 4 MG/2 ML SDV IVPUSH ONE (09:10)
[2020-10-19] MEDS ORDERED: MVI, Adult with Vitamin K 10 ML, Thiamine 100 MG, Chromium/Copper/Mang/Selen/Zn 1 ML in... IV ONE ×4 (10:00)
[2020-10-19] MEDS ORDERED: Midazolam 1 MG/ML 2 ML SDV ONE (10:22)
[2020-10-19] MEDS ORDERED: fentaNYL 100 MCG/2 ML SDV ONE (10:22)
[2020-10-19] MEDS ORDERED: Propofol 200 MG/20 ML SDV ONE (10:22)
--- NOTE | 2020-10-22 07:13 | OR ---
DATE OF PROCEDURE: 10/19/2020 SURGEON: Michael Schuler MD PREOPERATIVE DIAGNOSIS: Nausea and epigastric discomfort, status post duodenal switch. POSTOPERATIVE DIAGNOSIS: Status post duodenal switch with moderate antral gastritis. OPERATIVE PROCEDURES: Esophagogastroduodenoscopy with antral biopsies for CLOtest. ANESTHESIA: IV sedation. INDICATIONS FOR PROCEDURE: This is a 45-year-old status post duodenal switch, presenting with some ongoing epigastric discomfort and nausea. The patient presently is on Protonix 40 mg b.i.d. Plan is to proceed with an upper GI endoscopy with biopsies and/or dilation as indicated. Potential risks including bleeding and perforation were discussed, and the patient wishes to proceed. DETAILS OF PROCEDURE: The patient was taken to the operating room and placed in a left lateral decubitus position. IV sedation was administered, after which the upper GI endoscope was passed orally through the length of the esophagus into the sleeve gastrectomy, and from there through the pyloric channel and beyond the duodenal ileostomy. The patient was noted to have normal esophagus and EG junction area. In the stomach, small amount of retained bile was present, but the proximal stomach was unremarkable. In the antrum, there was some moderate redness diffusely without erosions or ulcers as one passed through the otherwise wide open pylorus into the proximal most duodenum and thereafter through the duodenal ileostomy. No additional abnormalities were noted. At that point, biopsies were obtained from the antrum and sent for CLOtest for H pylori. Minimal bleeding from the biopsy sites was seen and the procedure was then concluded. The patient will be started on Carafate 1 g q.i.d. and she will be set up for a virtual visit with Vane Carvalho in 2 weeks to see how things are going. In this case, the Carafate could be taken as an intact pill as it will dissolve in the stomach. Michael Schuler MD /[id number]
== END 2020-10-19 12:24 | disposition home or self-care (01) ==
LOC: JP.SDS 08:38
PROVIDERS: ATTEND Surgery
DX: K29.70 Gastritis, unspecified, without bleeding (principal); I10 Essential (primary) hypertension; J44.9 Chronic obstructive pulmonary disease, unspecified; E66.01 Morbid (severe) obesity due to excess calories; Z01.812 Encounter for preprocedural laboratory examination; Z20.822 Contact with and (suspected) exposure to COVID-19
CPT/HCPCS: 43239; 81025; 87081; J2250; J2405; J2704; J3010; J3411; J7120; U0002

== ENCOUNTER 2020-12-31 08:22 | Inpatient (IN) | payer MEDICARE ==
[~2020-12-31 08:22] MED LIST changes: +Bupivacaine 0.5% 50 ML MDV ONE; +Dexamethasone 4 MG/ML SDV ONE; +Glycopyrrolate 0.2 MG/ML 5 ML MDV ONE; +Lidocaine 1% with EPINEPHrine 1:100,000 50 ML MDV ONE; +Meropenem 500 MG SDV ONE; +Neostigmine Methylsulfate 1 MG/ML 5 ML Syringe ONE; +Ondansetron 4 MG/2 ML SDV ONE; +Propofol 200 MG/20 ML SDV ONE; +Rocuronium 50 MG/5 ML Vial ONE; +Succinylcholine 200 MG/10 ML MDV ONE; -cefOXitin 2 GM Vial ONE; +fentaNYL 250 MCG/5 ML SDV ONE
[2020-12-31] MEDS ORDERED: Celecoxib 200 MG Cap PO ONE (08:30)
[2020-12-31] MEDS ORDERED: Acetaminophen 500 MG Tab PO ONE (08:30)
[2020-12-31] MEDS ORDERED: Dextrose 5%-Lactated Ringers 1,000 ML IV SCH ×3 (09:00→17:00)
[2020-12-31] MEDS ORDERED: Topiramate 100 MG Tab PO ONE (09:30)
[2020-12-31] MEDS ORDERED: Albuterol/Ipratropium 3.0-0.5 MG/3 ML Neb Soln NEB ONE (10:00)
[2020-12-31] MEDS ORDERED: cefOXitin 2 GM in Sodium Chloride 0.9% 50 ML IV ONE (10:00)
[2020-12-31] MEDS ORDERED: Ketamine 50 MG in Sodium Chloride 0.9% 49.5 ML IV SCH (10:15)
[2020-12-31] MEDS ORDERED: MAGNESIUM SULFATE IV ONE (10:15)
[2020-12-31] MEDS ORDERED: SODIUM CHLORIDE 0.9% IV ONE (10:15)
[2020-12-31] MEDS ORDERED: Ropivacaine 28 ML, dexAMETHasone 8 MG, EPINEPHrine 0.4 MG, Sodium Chloride 0.9% 49.6 ML NERVRT SCH ×4 (10:15)
[2020-12-31] MEDS ORDERED: Ketamine 500 MG/5 ML MDV IV SCH (10:15)
[2020-12-31] MEDS ORDERED: Magnesium Sulfate 1.7 GM in Sodium Chloride 0.9% 100 ML IV SCH (10:15)
[2020-12-31] MEDS ORDERED: fentaNYL 100 MCG/2 ML SDV ONE (12:04)
[2020-12-31] MEDS ORDERED: Lactated Ringers 1,000 ML ONE (13:38)
[2020-12-31] MEDS ORDERED: Sugammadex Sodium 200 MG/2 ML VIAL ONE (14:11)
[2020-12-31] MEDS ORDERED: diphenhydrAMINE 25 MG Cap PO PRN (14:13)
[2020-12-31] MEDS ORDERED: Ondansetron 4 MG/2 ML SDV IVPUSH PRN ×2 (14:13→16:00)
[2020-12-31] MEDS ORDERED: Naloxone 0.4 MG/ML SDV IVPUSH PRN (14:13)
[2020-12-31] MEDS ORDERED: diphenhydrAMINE 50 MG/ML SDV IVPUSH PRN (14:13)
[2020-12-31] MEDS ORDERED: Naloxone 0.4 MG/ML SDV IV PRN (15:00)
[2020-12-31] MEDS: HYDROmorphone/Normal Saline 15 MG/30 ML PCA IV PRN (15:20)
[2020-12-31] MEDS ORDERED: ClonazePAM 0.5 MG Tab PO PRN (15:43)
[2020-12-31] MEDS ORDERED: Albuterol/Ipratropium 3.0-0.5 MG/3 ML Neb Soln INH PRN (16:00)
[2020-12-31] MEDS ORDERED: hydrOXYzine HCL 100 MG/2 ML SDV IM PRN (16:00)
[2020-12-31] MEDS ORDERED: Glucagon,Human Recombinant 1 MG Vial IM PRN (16:00)
[2020-12-31] MEDS ORDERED: Insulin Lispro 100 Unit/ML 3 ML KwikPen SUBCUT PRN (16:00)
[2020-12-31] MEDS ORDERED: Labetalol 20 MG/4 ML Syringe IVPUSH PRN (16:00)
[2020-12-31] MEDS ORDERED: Calcium Gluconate 10% 1 GM/10 ML SDV IVPUSH PRN (16:00)
[2020-12-31] MEDS ORDERED: Metoclopramide 10 MG/2 ML SDV IVPUSH PRN (16:00)
[2020-12-31] MEDS ORDERED: 50% Dextrose in Water 50 ML Syringe IVPUSH PRN (16:00)
[2020-12-31] MEDS ORDERED: Acetaminophen 500 MG Tab PO PRN (16:00)
[2020-12-31] MEDS: 1: AA 5%/Calcium/D15W/Lytes 1,000 ML with MVI, Adult with Vitamin K 10 ML, Zinc/Copper/M IV SCH ×3 (16:57)
[2020-12-31] MEDS: Fat Emulsion 100 ML IV SCH (17:00)
[2020-12-31] MEDS ORDERED: Scopolamine 1.5 MG Transdermal Patch TOP SCH (17:00)
[2020-12-31] MEDS ORDERED: Pantoprazole 40 MG Vial IVPUSH SCH (17:00)
[2020-12-31] MEDS: Acetaminophen 500 MG Tab PO SCH (17:01)
[2020-12-31] MEDS: cefOXitin 2 GM in Sodium Chloride 0.9% 50 ML IV SCH (18:10)
[2020-12-31] MEDS: Heparin Sodium 5,000 Units/ML Vial SUBCUT SCH (20:15)
[2020-12-31] MEDS: Propranolol 40 MG Tab PO SCH (20:16)
[2020-12-31] MEDS: Topiramate 100 MG Tab PO SCH (20:16)
[2020-12-31] MEDS: Albuterol/Ipratropium 3.0-0.5 MG/3 ML Neb Soln INH SCH (20:17)
[2020-12-31] MEDS ORDERED: buPROPion 150 MG Tab.SR PO SCH (21:00)
[2021-01-01] MEDS: cefOXitin 2 GM in Sodium Chloride 0.9% 50 ML IV SCH ×4 (00:01→18:13)
[2021-01-01] MEDS: Acetaminophen 500 MG Tab PO SCH ×3 (00:01→16:32)
[2021-01-01] MEDS: 1: AA 5%/Calcium/D15W/Lytes 1,000 ML with MVI, Adult with Vitamin K 10 ML, Zinc/Copper/M IV SCH ×9 (03:04→23:46)
[2021-01-01] MEDS ORDERED: Iopamidol 612 MG/ML 50 ML SDV PO ONE (03:43)
[2021-01-01] MEDS ORDERED: methylPREDNISolone Sodium Succinate 125 MG/2 ML SDV IVPUSH ONE (04:00)
[2021-01-01] MEDS: Albuterol/Ipratropium 3.0-0.5 MG/3 ML Neb Soln INH SCH ×4 (07:18→20:30)
[2021-01-01] MEDS ORDERED: Ondansetron 4 MG Tab.DIS PO PRN (07:36)
[2021-01-01] MEDS: Levothyroxine 50 MCG Tab PO SCH (07:36)
[2021-01-01] MEDS ORDERED: Central Total Parenteral Nutrition Bag SCH (07:45)
[2021-01-01] MEDS: Celecoxib 200 MG Cap PO SCH ×2 (08:40→20:24)
[2021-01-01] MEDS: Propranolol 40 MG Tab PO SCH ×2 (08:40→20:24)
[2021-01-01] MEDS: Heparin Sodium 5,000 Units/ML Vial SUBCUT SCH ×2 (08:40→20:24)
[2021-01-01] MEDS: SCOPOLAMINE PATCH CHECK TOP SCH (08:41)
[2021-01-01] MEDS: Topiramate 100 MG Tab PO SCH ×2 (08:42→20:25)
[2021-01-01] MEDS: Lactated Ringers 1,000 ML IV SCH (08:43)
--- NOTE | 2021-01-01 09:44 | PN ---
DATE OF SERVICE: 01/01/2021 SUBJECTIVE: Rosario's upper GI was normal this morning. She states she feels better than she did prior to surgery. The pain that she months she said is gone. She has surgical pain but not the persistent abdominal pain. Vital signs have been stable. She has been up ambulating. Oral intake 1850. Urine output via Arriaza catheter is 1025. REVIEW OF SYSTEMS: Remainder of review of systems negative for any pertinent positives and negatives. OBJECTIVE: GENERAL: Rosario is a pleasant 45-year-old female. VITAL SIGNS: TPR is 97.7, 69, 16. Blood pressure 110/78. HEENT: Negative. NECK: Supple. HEART: Regular rate and rhythm. LUNGS: Clear. ABDOMEN: Dressings dry and intact. Abdominal binder is on. EXTREMITIES: Without peripheral edema. ASSESSMENT: 1. Insertion of left subclavian triple lumen. 2. Exploratory laparotomy with lysis of adhesions. 3. Revision of the duodenal switch. 4. Small bowel strictureplasty. 5. Excision of peritoneal implant. POSTOPERATIVE DIAGNOSES: 1. Inadequate central venous access. 2. Excessive weight loss status post laparoscopic duodenal switch. 3. Focal small bowel stricture. 4. Peritoneal band around abdominal wall to small bowel, 6 cm. Date of procedure 12/31/2020. Surgeon: Michael Schuler MD. PLAN: 1. Continue same TPN rate and content. 2. Check CBC, CMP, and phos in a.m. 3. Change IV to lactated Ringer's to TKO. 4. Discontinue Arriaza. 5. Step 2 gastric bypass diet. 6. Dietary consult. 7. May shower. 8. Continue incentive spirometer and ambulation. 9. We will evaluate p.r.n. or in a.m. Vane Carvalho PA-C /[id number]
--- NOTE | 2021-01-01 10:24 | CR ---
CHEST: Portable 12/31/2020 CLINICAL HISTORY:Central line placement COMPARISON:2019 FINDINGS: Patient has had placement of a left subclavian catheter. The tip is in the superior vena cava atrial junction region. Lung sharp are clear. There is no pneumothorax. Patient has free intraperitoneal air postoperatively. Impression: Left central venous line in good position No acute cardiopulmonary process Postoperative free intraperitoneal air.
--- NOTE | 2021-01-01 10:54 | CR ---
[facility] HISTORY: Postbariatric surgery FINDINGS: Patient swallowed water-soluble contrast. Upright views of the abdomen show no evidence of extravasation or obstruction. IMPRESSION: Status post bariatric surgery No extravasation or obstruction seen
[2021-01-01] MEDS: Pantoprazole 40 MG Tab.CR PO SCH (12:03)
[2021-01-01] MEDS: Fat Emulsion 100 ML IV SCH (16:32)
[2021-01-01] MEDS: Insulin Lispro 100 Unit/ML 3 ML KwikPen SUBCUT SCH ×2 (16:35→22:03)
[2021-01-01] MEDS: HYDROmorphone/Normal Saline 15 MG/30 ML PCA IV PRN (22:01)
[2021-01-02] MEDS: Acetaminophen 500 MG Tab PO SCH ×3 (03:43→17:32)
[2021-01-02] MEDS: Insulin Lispro 100 Unit/ML 3 ML KwikPen SUBCUT SCH ×2 (04:30→10:22)
[2021-01-02] MEDS: Pantoprazole 40 MG Tab.CR PO SCH (07:25)
[2021-01-02] MEDS: Levothyroxine 50 MCG Tab PO SCH (07:25)
[2021-01-02] MEDS: Albuterol/Ipratropium 3.0-0.5 MG/3 ML Neb Soln INH SCH ×4 (07:40→20:32)
[2021-01-02] MEDS ORDERED: Central Total Parenteral Nutrition Bag SCH (08:30)
[2021-01-02] MEDS ORDERED: Cyanocobalamin (Vitamin B12) 1,000 MCG/ML SDV IM ONE (09:00)
[2021-01-02] MEDS: SCOPOLAMINE PATCH CHECK TOP SCH (09:00)
[2021-01-02] MEDS: Bisacodyl 5 MG Tab PO SCH ×2 (09:01→20:34)
[2021-01-02] MEDS: Propranolol 40 MG Tab PO SCH ×2 (09:01→20:34)
[2021-01-02] MEDS: Celecoxib 200 MG Cap PO SCH ×2 (09:01→20:34)
[2021-01-02] MEDS: Heparin Sodium 5,000 Units/ML Vial SUBCUT SCH ×2 (09:01→20:35)
[2021-01-02] MEDS: Docusate Sodium 100 MG Cap PO SCH ×2 (09:01→20:34)
[2021-01-02] MEDS: Topiramate 100 MG Tab PO SCH ×2 (09:01→20:34)
[2021-01-02] MEDS: 1: AA 5%/Calcium/D15W/Lytes 1,000 ML with MVI, Adult with Vitamin K 10 ML, Zinc/Copper/M IV SCH ×6 (10:17→21:06)
--- NOTE | 2021-01-02 11:25 | PN ---
DATE OF SERVICE: 01/02/2021 SUBJECTIVE: Rosario's vital signs have been stable. She has been up, ambulating. Oral intake 2109. Urine output 2149. She has been eating 50% of breakfast, 100% of lunch, and dinner. She is using her INSURANCE ACCOUNT MANAGER. Pain is controlled. REVIEW OF SYSTEMS: Remainder of review of systems negative for any pertinent positives and negatives. OBJECTIVE: GENERAL: Rosario is a pleasant 45-year-old female. VITAL SIGNS: TPR is 98.4, 83, 14, blood pressure 101/40. HEENT: Negative. NECK: Supple. HEART: Regular rate and rhythm. LUNGS: Clear. ABDOMEN: Aquacel dressings dry and intact. Abdominal binder is on. EXTREMITIES: Without peripheral edema. ASSESSMENT: 1. Insertion of left subclavian triple lumen. 2. Exploratory laparotomy with lysis of adhesions. 3. Revision of duodenal switch. 4. Small bowel strictureplasty. 5. Excision of peritoneal implant. POSTOPERATIVE DIAGNOSES: 1. Inadequate central venous access. 2. Excessive weight loss, status post laparoscopic duodenal switch. 3. Focal small bowel stricture. 4. Peritoneal band around the abdominal wall, small bowel, 6 cm. 5. Date of procedure: 12/31/2020. Surgeon: Michael Schuler MD. PLAN: 1. Continue same TPN rate and content. 2. Check CBC, CMP, and phos in a.m. 3. Discontinue Accu-Cheks. 4. Colace 100 mg b.i.d. orally scheduled. 5. Dulcolax 10 mg p.o. b.i.d. scheduled. 6. We will evaluate p.r.n. or in a.m. Vane Carvalho PA-C /[id number]
[2021-01-02] MEDS: HYDROmorphone 2 MG Tab PO PRN ×3 (12:19→20:38)
[2021-01-02] MEDS: hydrOXYzine HCl 25 MG Tab PO PRN ×2 (14:44→20:38)
[2021-01-02] MEDS: Cyclobenzaprine 10 MG Tab PO PRN (14:45)
[2021-01-02] MEDS: Fat Emulsion 100 ML IV SCH (17:29)
[2021-01-03] MEDS: HYDROmorphone 2 MG Tab PO PRN ×5 (02:00→21:02)
[2021-01-03] MEDS: Acetaminophen 500 MG Tab PO SCH ×3 (02:01→16:07)
[2021-01-03] MEDS: Lactated Ringers 1,000 ML IV SCH (02:02)
[2021-01-03] MEDS: Albuterol/Ipratropium 3.0-0.5 MG/3 ML Neb Soln INH SCH ×4 (07:11→20:59)
[2021-01-03] MEDS: 1: AA 5%/Calcium/D15W/Lytes 1,000 ML with MVI, Adult with Vitamin K 10 ML, Zinc/Copper/M IV SCH ×6 (07:30→16:57)
[2021-01-03] MEDS: Pantoprazole 40 MG Tab.CR PO SCH (07:33)
[2021-01-03] MEDS: Levothyroxine 50 MCG Tab PO SCH (07:33)
[2021-01-03] MEDS ORDERED: Central Total Parenteral Nutrition Bag SCH (08:15)
[2021-01-03] MEDS: Celecoxib 200 MG Cap PO SCH ×2 (09:17→21:01)
[2021-01-03] MEDS: Docusate Sodium 100 MG Cap PO SCH ×2 (09:17→20:59)
[2021-01-03] MEDS: Heparin Sodium 5,000 Units/ML Vial SUBCUT SCH ×2 (09:17→21:01)
[2021-01-03] MEDS: Topiramate 100 MG Tab PO SCH ×2 (09:18→21:02)
[2021-01-03] MEDS: Propranolol 40 MG Tab PO SCH ×2 (09:18→21:02)
[2021-01-03] MEDS: Bisacodyl 5 MG Tab PO SCH ×2 (09:18→20:59)
--- NOTE | 2021-01-03 11:23 | PN ---
DATE OF SERVICE: 01/03/2021 SUBJECTIVE: Rosario is a pleasant 45-year-old female. She states that she feels achy, tired today, not as good as yesterday. Vital signs have been stable. This morning, her hemoglobin is 7.6. Albumin is 1.6. REVIEW OF SYSTEMS: Remainder of review of systems negative for any pertinent positives and negatives. OBJECTIVE: GENERAL: Rosario Weaver is a pleasant 45-year-old female. She looks like she is not feeling real well today. VITAL SIGNS: TPR 98.2, 75, 18, blood pressure 97/56. HEENT: Negative. NECK: Supple. HEART: Regular rate and rhythm. LUNGS: Clear. ABDOMEN: Dressings dry and intact. Abdominal binder is on. EXTREMITIES: Without peripheral edema. ASSESSMENT: 1. Insertion of left subclavian triple lumen. 2. Exploratory laparotomy with lysis of adhesions. 3. Revision of duodenal switch. 4. Small-bowel strictureplasty. 5. Excision of peritoneal implant. POSTOPERATIVE DIAGNOSES: 1. Inadequate central vein access. 2. Excision of weight loss, status post laparoscopic duodenal switch. 3. Focal small bowel stricture. 4. Peritoneal band around the abdominal wall, small bowel, 6 cm. 5. Date of procedure: 12/31/2020. Surgeon: Michael Schuler MD. PLAN: 1. Continue same TPN rate and content. 2. Check CBC, CMP, mag, phos in a.m. Type and screen 2 units of packed red blood cells. 3. Give 1 unit of packed red blood cells now. Albumin 50 g IV today. 4. Albumin 25 g IV tomorrow. 5. Continue to work on ambulation and we will evaluate p.r.n. or in a.m. Vane Carvalho PA-C /[id number]
[2021-01-03] MEDS: Cyclobenzaprine 10 MG Tab PO PRN (15:10)
[2021-01-03] MEDS: Fat Emulsion 100 ML IV SCH (16:07)
[2021-01-04] MEDS: Cyclobenzaprine 10 MG Tab PO PRN (00:30)
[2021-01-04] MEDS: Acetaminophen 500 MG Tab PO SCH ×2 (00:30→09:23)
[2021-01-04] MEDS: HYDROmorphone 2 MG Tab PO PRN ×2 (02:57→09:12)
[2021-01-04] MEDS: 1: AA 5%/Calcium/D15W/Lytes 1,000 ML with MVI, Adult with Vitamin K 10 ML, Zinc/Copper/M IV SCH ×3 (03:00)
[2021-01-04] MEDS: Albuterol/Ipratropium 3.0-0.5 MG/3 ML Neb Soln INH SCH (07:14)
[2021-01-04] MEDS: Pantoprazole 40 MG Tab.CR PO SCH (09:20)
[2021-01-04] MEDS: Celecoxib 200 MG Cap PO SCH (09:20)
[2021-01-04] MEDS: Propranolol 40 MG Tab PO SCH (09:21)
[2021-01-04] MEDS: Levothyroxine 50 MCG Tab PO SCH (09:21)
[2021-01-04] MEDS: Docusate Sodium 100 MG Cap PO SCH (09:22)
[2021-01-04] MEDS: Heparin Sodium 5,000 Units/ML Vial SUBCUT SCH (09:22)
[2021-01-04] MEDS: Bisacodyl 5 MG Tab PO SCH (09:22)
[2021-01-04] MEDS: Topiramate 100 MG Tab PO SCH (09:23)
--- NOTE | 2021-01-05 00:03 | DISCH ---
ADMISSION DIAGNOSES: 1. Malnutrition. 2. Excessive weight loss. 3. Abdominal pain. 4. Status post duodenal switch. 5. Depression. 6. Anxiety. DISCHARGE DIAGNOSES: 1. Insertion of left subclavian triple-lumen. 2. Exploratory laparotomy with lysis of adhesions. 3. Revision of the duodenal switch. 4. Small bowel strictureplasty. 5. Excision of peritoneal implant. POSTOPERATIVE DIAGNOSES: 1. Inadequate central vein access. 2. Excessive weight loss, status post laparoscopic duodenal switch. 3. Focal small bowel stricture. 4. Peritoneal band around abdominal wall to small bowel, 6 cm. 5. Date of procedure 12/31/2020. Surgeon: Michael Schuler MD. HISTORY: Rosario Weaver is a pleasant 45-year-old female who had a duodenal switch and developed abdominal pain, diarrhea, and excessive weight loss. After preoperative evaluation and discussion of possible risks and possible complications, she wished to proceed with surgical procedure. HOSPITAL COURSE: Rosario had her surgery on 12/31/2020. She had no operative complications. Her upper GI was normal. She was started on TPN right after surgery and remained on it till discharge. On postoperative day #1, she was started on step 2 gastric bypass diet. On postoperative day #2, the [place] B[place] was discontinued. She continued with TPN, started on oral pain medication and bowel stimulation. On postoperative day #3, she was given 1 unit of packed red blood cells for a hemoglobin of 7.6, and she was given albumin 50 g on 01/03/2021 and 25 g prior to discharge due to albumin of 1.6. Labs remained within normal limits. Her activity was good. Pain was well managed. Vital signs stable. Oral intake adequate. She did have a bowel movement and urinary output was adequate. She received dietary instruction. Was able to be discharged to home on 01/04/2021. PHYSICAL EXAMINATION: GENERAL: Rosario Weaver is a pleasant 45-year-old female. Height is 5 feet 6 inches, weight is 149 pounds. BMI is 24. VITAL SIGNS: TPR is 99.5, 77, 16, blood pressure is 106/88. HEENT: Negative. NECK: Supple. HEART: Regular rate and rhythm. LUNGS: Clear. ABDOMEN: Aquacel dressings on. Abdominal binder is on. EXTREMITIES: Without peripheral edema. DISPOSITION: Discharged to home. CONDITION: Stable and improving. FOLLOWUP: Followup appointment with Vane Carvalho PA-C, at [facility] on 01/10/2021 at 10 a.m. HOME PRESCRIPTIONS: 1. Celebrex 200 mg p.o. b.i.d. #28. 2. Dilaudid 2 mg oral q.4 hours p.r.n. pain, #42. 3. Tylenol 1000 mg q.8 hours p.r.n. pain. She is to resume her home medications: 1. Clonazepam 0.5 to 1 mg daily as needed. 2. Topamax 100 mg oral b.i.d. 3. Albuterol inhaler 1 to 2 puffs every 4 hours p.r.n. wheezing. 4. Rizatriptan benzoate 10 mg tablets sublingual as needed. 5. Protonix 40 mg twice a day. 6. Famotidine 20 mg oral twice a day. 7. Fiorinal 50/325/40 one capsule every 8 hours p.r.n. headaches. 8. DuoNeb 3 mL every 4 hours p.r.n. shortness of breath. 9. Levothyroxine 150 mcg oral before breakfast. 10.Suvorexant 15 mg at bedtime p.r.n. insomnia. 11.Culturelle 2 tablets oral twice daily. 12.Dicyclomine 10 mg oral 3 times a day. 13.Depo-Provera 150 mg every 3 months. 14.Fiber therapy 1000 mg oral daily. 15.Zofran ODT 8 mg q.8 hours p.r.n. nausea, vomiting. 16.Inderal 10 mg oral twice daily. 17.Bupropion 75 mg oral twice daily. DISCHARGE INSTRUCTIONS: Diet: Step 2 gastric bypass diet with no cereal for 1 month until 02/09/2021. Driving: Do not drive for 1 week. Shower/bathing: May shower. Notify provider if any fever, increased pain, nausea, vomiting, drainage or redness of incision. Wound incision care: Keep site clean and dry. Take off Aquacel dressing in 3 days. Wear abdominal binder for 6 weeks and then as tolerated. SPECIAL INSTRUCTION: Use incentive spirometer 10 times every hour while awake for 1 week. /[id number]
--- NOTE | 2021-01-07 16:19 | OR ---
DATE OF PROCEDURE: 12/31/2020 SURGEON: Michael Schuler MD PREOPERATIVE DIAGNOSES: 1. Indications for central venous access. 2. Extensive weight loss, status post duodenal switch. POSTOPERATIVE DIAGNOSES: 1. Indications for central venous access. 2. Extensive weight loss, status post duodenal switch. 3. Focal small bowel stricture. 4. Peritoneal band extending from abdominal wall onto the small bowel. OPERATIVE PROCEDURES: 1. Insertion of left subclavian vein triple-lumen catheter (02713). 2. Exploratory laparotomy with lysis of adhesions and: a. Revision of duodenal switch (92711). b. Small bowel stricturoplasty ( ). c. Excision of peritoneal implant from anterior abdominal wall extending onto small bowel (64122). d. Placement of Interceed mesh to displace pelvic and abdominal wall from underlying viscera to reduce subsequent adhesion formation. ANESTHESIA: General. MEDICAL SOCIOLOGIST: Vane Carvalho PA-C. INDICATIONS FOR PROCEDURE: This is a 45-year-old status post a laparoscopic duodenal switch, presenting with excess weight loss along with crampy abdominal pain. She has pain much of the time and this is also exacerbated by oral intake. At this point, conservative attempts at correction of the excessive weight loss and abdominal pain have been unsuccessful and the plan will be to proceed with exploratory laparotomy with revision of the duodenal switch to providing a significantly longer common limb. The patient also had a central line inserted at the time of anesthesia induction to provide postoperative hyperalimentation during her inpatient convalescence to help initiate jewish of her nutritional status. Potential risks of the procedure including bleeding, infection, injury to underlying viscera, leaks from various GI tract anastomoses were all gone over and the patient wishes to proceed. DETAILS OF PROCEDURE: The patient was taken to the operating room and placed in a supine position. After general endotracheal anesthesia was induced, Arriaza catheter was inserted. Initially, upper chest was prepped and draped, and using standard technique, the left subclavian vein triple-lumen catheter was inserted. Good in and outflow was noted. Ports were flushed with heparinized saline. Subsequent chest x-ray showed catheter tip within the upper right atrium without complications. The abdomen was then prepped and draped. An upper midline incision was then made from the umbilicus to just below the xiphoid and carried down through the full-thickness abdominal wall. Upon entering the peritoneal cavity, the patient was noted to have a peritoneal implant overlying the anterior abdominal wall which extended downward onto the small bowel. This was causing some distortion of the small bowel course in its fairly proximal level. This peritoneal nodule was then excised and measured 6 cm. At this point, the small bowel was mapped out from the ileocecal valve, and as expected, the loop duodenal ileostomy was 300 cm proximal to the ileocecal valve as is typically constructed. At that point, the ileum was disconnected from the proximal duodenum with reinforced NIYAH purple load. That area of ileum was noted to be somewhat strictured and we then performed stricturoplasty at that level with the bowel being flipped over on itself and single internal firing of the Endo-NIYAH 60 mm stapler was accomplished with the common opening being closed with a purple NIYAH load, and the angles of anastomosis reinforced with some 3-0 Vicryl stitch, and at that stricturoplasty site, there was no mesenteric defect. The small bowel was then traced out 200 cm proximal to that level giving the patient an extra 200 cm of common limb, and at that level, the duodenum to the site of the small bowel was anastomosed with 2 layers of 3-0 Vicryl stitch after small opening was made in the small bowel as well as the divided end of the duodenum. The outer layer was a seromuscular 3-0 Vicryl stitch and the inner layer of full-thickness 3-0 Vicryl stitch. Concerning this case would be whether or not abdominal pain has to do with bile reflux into the stomach with the loop ileoduodenostomy. Given this, the small bowel just proximal to the new duodenal to small bowel anastomosis was divided and this was then reinflated with a Thu-en-Y configuration roughly 40 cm distally. This would allow a distal displacement of any bile into the small bowel level of the current anastomosis, which should avoid problems with any bile reflux. This was accomplished with an internal firing of the Endo-NIYAH 60 mm stapler followed by the common opening being closed with a NIYAH stapler as well. Angles of anastomoses were reinforced with some 3-0 Vicryl stitch and the mesenteric defect with a 2-0 silk stitch. At this point, no further problems were noted. The abdomen was irrigated with an antibiotic- containing saline solution. Drain was felt not to be necessary as all the anastomoses appeared to be quite secure. There was no omentum available to place underneath the incision down towards the pelvis, so an Interceed mesh x2 was placed underneath the incision and from there down towards the pelvis in order to limit recurrent adhesion formation. The midline fascia was then approximated with #2 Vicryl stitch and the skin closed with gayathri over 2 layers of 3-0 Vicryl stitch placed in the subcutaneous tissue. Prior to closure, bilateral transversus abdominis plane blocks were then placed and the patient was taken to the recovery room in satisfactory condition. There were no evident complications. Physician cook's assistant, Vane Carvalho, played an essential role in assisting in this case, helping to position the patient, retract structures as needed, as well as suturing and cutting sutures when indicated. Her presence improved patient safety and decreased operative time. Michael Schuler MD /[id number]
== END 2021-01-04 09:50 | disposition home or self-care (01) | DRG 330 ==
LOC: JP.SDS 08:22 → JP.MS 14:20
PROVIDERS: ADMIT Surgery; ATTEND Surgery
PROC: 0D190ZB Bypass Duodenum to Ileum, Open Approach (ICD-10-PCS; principal; 2020-12-31)
PROC: 0DQ80ZZ Repair Small Intestine, Open Approach (ICD-10-PCS; 2020-12-31)
PROC: 0JB80ZZ Excision of Abdomen Subcutaneous Tissue and Fascia, Open Approach (ICD-10-PCS; 2020-12-31)
PROC: 3E0M05Z Introduction of Adhesion Barrier into Peritoneal Cavity, Open Approach (ICD-10-PCS; 2020-12-31)
PROC: 02HV33Z Insertion of Infusion Device into Superior Vena Cava, Percutaneous Approach (ICD-10-PCS; 2020-12-31)
PROC: 30233N1 Transfusion of Nonautologous Red Blood Cells into Peripheral Vein, Percutaneous Approach (ICD-10-PCS; 2020-12-31)
PROC: 3E0436Z Introduction of Nutritional Substance into Central Vein, Percutaneous Approach (ICD-10-PCS; 2020-12-31)
DX: K95.89 Other complications of other bariatric procedure (principal); K56.609 Unspecified intestinal obstruction, unspecified as to partial versus complete obstruction; E46 Unspecified protein-calorie malnutrition; K91.2 Postsurgical malabsorption, not elsewhere classified; Z68.41 Body mass index [BMI] 40.0-44.9, adult; R63.4 Abnormal weight loss; Y83.8 Other surgical procedures as the cause of abnormal reaction of the patient, or of later complication, without mention of misadventure at the time of the procedure; E53.8 Deficiency of other specified B group vitamins; E53.9 Vitamin B deficiency, unspecified; E60 Dietary zinc deficiency; E50.9 Vitamin A deficiency, unspecified; E03.9 Hypothyroidism, unspecified; N18.30 Chronic kidney disease, stage 3 unspecified; F41.1 Generalized anxiety disorder; E11.22 Type 2 diabetes mellitus with diabetic chronic kidney disease; F90.2 Attention-deficit hyperactivity disorder, combined type; I12.9 Hypertensive chronic kidney disease with stage 1 through stage 4 chronic kidney disease, or unspecified chronic kidney disease; F31.9 Bipolar disorder, unspecified; J44.9 Chronic obstructive pulmonary disease, unspecified; G89.4 Chronic pain syndrome; E66.01 Morbid (severe) obesity due to excess calories; Z87.891 Personal history of nicotine dependence; Z68.24 Body mass index [BMI] 24.0-24.9, adult; Z79.890 Hormone replacement therapy; Z79.899 Other long term (current) drug therapy; Z98.84 Bariatric surgery status; Z91.040 Latex allergy status; Z88.8 Allergy status to other drugs, medicaments and biological substances; Z90.49 Acquired absence of other specified parts of digestive tract
CPT/HCPCS: 36415; 36430; 71045; 71045-26; 74240; 74240-26; 80053; 81025; 82947; 83735; 83880; 84100; 84443; 85025; 85027; 86850; 86900; 86901; 86920; 86922; 88305; 88341; 88342; 94640; 94762; A9270-GY; C9113; J0171; J0330; J0694; J1100; J1170; J1642; J1644; J2185; J2405; J2704; J2710; J2795; J2930; J3010; J3410; J3420; J3475; J3490; J7050; J7120; J7121; J7620-GY; P9016; P9047; Q9967